=== PATIENT | female | born 2000 | race African-American/Black ===

== ENCOUNTER 2025-01-06 13:55 | Outpatient (AMB) | payer OTHER, SELFPAY ==
--- NOTE | 2025-01-06 14:14 | A.OFFPC_ITS ---
Vital Signs 01/06/25 14:24 Height 5 ft 9.69 in Weight 184 lb BMI 26.6 BP 96/72 Blood Pressure Location Lt brachial Position Sitting Respiration 17 Pulse 74 Pulse Source Pulse Oximeter Temp 97.3 F Temp Source Temporal Artery Scan Pulse Oximetry (%) 99 Oxygen Delivery Method Room Air Intake Visit Reasons: Establish care; swollen leg Insurance Law Specialist Required: No Accompanied by: Self / Same As Patient Allergies No Known Allergies Allergy (Verified 01/06/25 14:46) Medication List - Last Reconciled 01/06/25 by Shante White PA-C No Known Home Meds Tobacco use date assessed: 01/06/25 Dental Screening Dental Screen Date: 01/06/25 Did you have a dental visit in the last 12 months?: Yes Did you have a dental problem in the last 6 months where you did not have access to dental care?: No Was dental information given to patient?: Patient has dentist HPI Establish care; swollen leg HPI Details The patient is a 24-year-old female presenting for new patient appointment, annual physical exam and with bilateral leg swelling. The swelling has been persistent since March of the previous year and occurs daily. The patient first noticed the swelling during basic training in the , where she was not very active initially. The patient reports no associated chest pain or dyspnea, although she experien adam difficulty with physical exertion during basic training, such as climbing stairs and running. She has been on bed rest when not at work to manage the symptoms. An ultrasound of the legs was performed at [facility], which returned normal results. Blood tests were also conducted, showing normal results, except for a low blood count noted by a PA at the [facility], suggesting possible anemia. The patie nt denies any family history of heart disease or sudden cardiac . Social History - Employment: Works as a service delivery management consultant, wh ich involves prolonged standing. - Service: Previously in the ne litary, where she first noticed leg swelling. [facility] Medical History (Updated 01/06/25 @ 17:00 by Shante White PA-C) Anemia Annual physical exam Pedal edema Family History Father No problems noted. Mother Family history of thyroid problem Social History Housing: House Alcohol intake: current Alcohol intake frequency: holidays/special occasions only Patient Tobacco Use Status: Never used Tobacco service: No Current occupational status: employed Cognitive needs: No Hearing needs: No Vision needs: Yes (rx glasses) Questionnaire PHQ-9 Over the last 2 weeks, how often have you been bothered by any of the following problems? 1. Little interest or pleasure in doing things: not at all 2. Feeling down, depressed, or hopeless: not at all 3. Trouble falling or staying asleep, or sleeping too much: not at all 4. Feeling tired or having little energy: not at all 5. Poor appetite or overeating: not at all 6. Feeling bad about yourself - or that you are a failure or have let yourself o r your family down: not at all 7. Trouble concentrating on things, such as reading the newspaper or watching television: not at all 8. Moving or speaking so slowly that other people could have noticed. Or the opposite - being so fidgety or restless that you have been moving around a lot more than usual: not at all 9. Thoughts that you would be better off or of hurting yourself in some way: not at all Total score: 0 Depression Screening Interpretation: Negative Depression Screening Done: Yes 69629 - PHQ-9 Billing: Yes Source: Developed by Drs. Jon Bashir, Ketty Sanchez, Juanito fairbanks nd colleagues, with an educational jessenia from [employer]. Thrive Questionnaire Date Thrive assessed: 01/06/25 I am a: Patient What is your living situation today?: I have a steady place to live Within the past 12 months, did the food you bought not last and you didn't have the money to get more?: Never true Within the past 12 months, did you worry whether your food would run out before you got money to buy more?: Never true Do you have trouble paying for medicines?: No Do you have trouble getting transportation to medical appointments?: No Do you have trouble paying your heating and electricity bill?: No Do you have trouble taking care of your child, family member or friend?: No Do you have trouble with day-to-day activities such as bathing, preparing meals, shopping, managing finances, etc.?: No Are you currently unemployed and looking for a job?: No Are you interested in more education?: No Please select the resources that you would like help with: None Currently or been in a relationship where the following occur: No concerns reported THRIVE Score: 0 AUDIT C Alcohol Use Questionnaire (AUDIT-C) 1. How often do you have a drink containing alcohol?: Monthly or less 2. How many drinks containing alcohol do you have on a typical day when you are drinking?: 1 or 2 3. How often do you have six or more drinks on one occasion?: Never Total Score: 1 Score Reviewed/Action Taken: No WILFRED-7 AMB Questionnaire WILFRED-7 Date WILFRED - 7 assessed: 01/06/25 Feeling nervous, anxious, or on edge: 0 = Not at all Not being able to stop or control worryin = Not at all Worrying too much about different things: 0 = Not at all Trouble relaxin = Not at all Being so restless that it is hard to sit still: 0 = Not at all Becoming easily annoyed or irritable: 0 = Not at all Feeling afraid as if something awful might happen: 0 = Not at all Total WILFRED-7 score (0-4 normal; 5-9 mild; 10-14 moderate; 15-21 severe): 0 Source: Developed by Drs. Jon Bashir, Ketty Sanchez, Juanito Justin and colleagues, with an educational jessenia from [employer]. WILFRED-7 Assessment Billing WILFRED-7 Assessment Tool: WILFRED-7 Assessment 97638 Review of Systems Const Details: - Cardiovascular: Denies chest pain, denies dyspnea. - Musculoskeletal: Reports bilateral leg swelling since March of the previous year. - Neurological: Denies numbness, denies headaches. - Respiratory: Denies cough, denies hemoptysis. All systems reviewed & are unremarkable except as noted in HPI and below Physical exam (Primary Care) Vital Signs: Last Vital Signs Temp 97.3 F 01/06/25 14:24 Pulse 74 01/06/25 14:24 Resp 17 01/06/25 14:24 BP 96/72 01/06/25 14:24 Pulse Ox 99 01/06/25 14:24 Oxygen Delivery Method Room Air 01/06/25 14:24 Care Plan Goal for BP management: <140/90 at Goal BMI result Body Mass Index 26.6 BMI Assessment/Plan discussion: High BMI High, discussed plan: lifestyle, weight reduction, dietary, physical activity and alcohol moderation Tobacco/Smoking Status: Tobacco use Status Tobacco use date assessed 01/06/25 01/06/25 14:21 Patient Tobacco Use Status Never used Tobacco 01/06/25 14:24 PHQ-9: PHQ-9 Score PHQ-9: Total score 0 01/06/25 14:46 Depression Screening Interpretation: Negative Thrive Assessment: Date of Thrive Assessment Date Thrive assessed 01/06/25 01/06/25 14:21 Currently or been in a relationship where the following occur: No concerns reported Const Other: Appearance: Alert. Oriented X3. No acute distress. Head: Normal external exam. Normocephalic. Atraumatic. Eyes: Pupils are equal, round, and reactive to light. Extraocular movements intact. Conjunctiva and sclera normal. Eyelids normal. Ears: External auditory canal normal. Tympanic membranes normal. Throat: Pharynx normal. Uvula midline. Moist mucous membranes. Neck: Normal inspection. Neck supple. Full range of motion. No adenopathy. Thyroid Normal. No meningeal signs. No neck mass noted. Cardiovascular: Normal heart rate and rhythm. Heart sound normal. No murmurs noted. Pulses normal throughout. Respiratory: No respiratory distress. Painless inspiration. Breath sounds no rmal. No wheezes/rales/rhonchi noted. Chest nontender. No accessory muscle usage noted or decreased air movement noted. Abdomen: Soft and nontender. Bowel sounds normal in all 4 quadrants. No distenti on noted. No organomegaly noted. No visible injury noted. Back: No costovertebral angle tenderness. Full range of motion noted. Skin: Skin warm and dry. Normal skin color. Normal skin turgor. No rashe s/lesions/lacerations noted. Extremities: Patient reports bilateral lower extremity edema although on my exam there is no lower extremity edema noted. No calf tenderness is noted. Extremities exhibit normal range of motion. Extremities nontender. Neuro: Oriented X 3. No motor deficit. No sensory deficit. Reflexes normal. Results Reviewed Results Reviewed: - Ultrasound: Normal results for bilateral leg ultrasound. - Blood Tests: Normal results, except for low blood count suggesting possible anemia. Coding Level of Care Code New Pt Level 4 (37273) New Pt Prev Care 18-39yr(38964 Diagnoses Annual physical exam Z00.00 Pedal edema R60.0 Anemia D64.9 Additional Codes WILFRED-7 Assessment Billing - WILFRED-7 Assessment Tool: WILFRED-7 Assessment 47894 ([id number]) PHQ-9 - 67184 - PHQ-9 Billing: Yes ([id number]) Assessment & Plan Assessment & Plan (1) Annual physical exam: Code(s): Z00.00 - Encounter for general adult medical examination without abnormal findings Category: Medical (2) Pedal edema: Code(s): R60.0 - Localized edema Category: Medical Plan: The plan includes repeating blood work to assess for anemia and other potential causes of swelling. Referral to a vascular surgeon is recommended for further evaluation of potential venous insufficiency or other vascular issues. A chest X-ray will be performed to rule out cardiac causes of swelling. (3) Anemia: Code(s): D64.9 - Anemia, unspecified Category: Medical Plan: Further blood tests, including iron studies, will be conducted to confirm anemia and assess its severity. The patient will be monitored for symptoms of anemia, such as fatigue and dyspnea. Plan Plan Patient was informed and verbally consented to the use of an ambient scribe for clinic note documentation during this visit. 1. Bilateral Leg Swelling The plan includes repeating blood work to assess for anemia and other potential causes of swelling. Referral to a vascular surgeon is recommended for further evaluation of potential venous insufficiency or other vascular issues. A chest X-ray will be performed to rule out cardiac causes of swelling. 2. Possible Anemia Further blood tests, including iron studies, will be conducted to confirm anemia and assess its severity. The patient will be monitored for symptoms of anemia, such as fatigue and dyspnea. During the visit, I discussed with the patient the potential causes of her bilateral leg swelling, including venous insufficiency and anemia. I explained the need for further blood work and a referral to a vascular surgeon for comprehensive evaluation. We also discussed the importance of a chest X-ray to rule out cardiac causes of swelling. Orders: Orders B Type Natriuretic Peptide Today R60.0 - Localized edema Complete Blood Count Auto Diff Today Z00.00 - Encounter for general adult medical examination without abnormal findings Ferritin Today D64.9 - Anemia, unspecified Hemoglobin A1c Today Z00.00 - Encounter for general adult medical examination without abnormal findings Liver Panel Today Z00.00 - Encounter for general adult medical examination wi thout abnormal findings Magnesium Today Z00.00 - Encounter for general adult medical examination without abnormal findings C Reactive Protein Today Z00.00 - Encounter for general adult medical examination without abnormal findings Comprehensive [place]. Panel Fast Today Z00.00 - Encounter for general adult medical examination without abnormal findings IRON PROFILE Today D64.9 - Anemia, unspecified Lipid Panel Today Z00.00 - Encounter for general adult medical examination without abnormal findings TSH reflex Free T4 Today Z00.00 - Encounter for general adult medical examination without abnormal findings Vitamin B12 and Folate Today Z00.00 - Encounter for general adult medical examination without abnormal findings Vitamin D 25-OH Total Today Z00.00 - Encounter for general adult medical examination without abnormal findings XR chest 2V Today R60.0 - Localized edema Referrals Vascular Surgery Referral R60.0 - Localized edema Patient Instructions: - Schedule and complete fasting blood work within the next month. - Await contact from the vascular surgeon's office to schedule an appointment. - Monitor for any new or worsening symptoms and report them promptly. - Follow up in three months to assess progress and adjust the care plan as needed.
[2025-01-06 14:24] VITALS: BP 96/72; PULSE 74; RESP 17; TEMP 36.3; O2SAT 99; BMI 26.6
== END 2025-01-06 15:09 | disposition home or self-care (01) ==
LOC: HO.HMCSH 13:55
PROVIDERS: PCP Internal Medicine; Visit Provider Physician Assistant Medical
DX: Z00.00 Encounter for general adult medical examination without abnormal findings (principal); R60.0 Localized edema; D64.9 Anemia, unspecified

== ENCOUNTER → 2025-01-06 13:55 | Outpatient (BNVA) | payer OTHER, SELFPAY | PROVIDERS: PCP Internal Medicine; Visit Provider Physician Assistant Medical | DX: Z00.00 Encounter for general adult medical examination without abnormal findings (principal); R60.0 Localized edema; D64.9 Anemia, unspecified | CPT/HCPCS: 96127 ==

== ENCOUNTER 2025-03-03 14:20 | Outpatient (AMB) | payer OTHER, SELFPAY ==
[2025-03-03 14:24] VITALS: BMI 28.0
--- NOTE | 2025-03-03 14:24 | MHC.OFFVIS ---
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 Pt states she has since moved back in the area and has had some testing in regards to the LE swelling. Pt states she stands working all day and swelling does worsen throughout the day. Pt states she wears compression and elevates when she is home and it seems to help. Dental Office Assistant Required: No Accompanied by: Self / Same As Patient Allergies grass pollen Adverse Reaction (Intermediate, Verified 03/03/25 14:30) Rash Latex, Natural Rubber Adverse Reaction (Intermediate, Verified 03/03/25 14:30) Rash HPI HPI BOX OFFICE ATTENDANT Edema: Details: The patient is a 24-year-old female presenting with bilateral leg swelling and heaviness. The swelling has been present for approximately one year, with no history of similar issues during childhood. There is no history of trauma or injury to the legs, and the patient denies any pain associated with the swelling. The patient reports a sensation of heaviness and tiredness in the legs, although there is no difficulty in lifting them. There is no family history of blood clots, and the patient does not smoke or have diabetes, although her grandmother had diabetes. 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 She noticed this in particular when she was in basic training in the and was subsequently discharged for that. She now presents to us for vascular evaluation. It has been affecting there daily activities including working in a deli. It is noted more so in bilateral leg. Patient denies any previous venous surgery or injections. Patient denies any history of DVT/ PE. Patient denies any history of phlebitis. Trial of compression includes - [id number] They now present for vascular evaluation regarding their varicose veins. [facility] Medical History Anemia Annual physical exam Pedal edema Family History Father No problems noted. Mother Family history of thyroid problem Social History Housing: House Alcohol intake: current Alcohol intake frequency: holidays/special occasions only Patient Tobacco Use Status: Never used Tobacco service: No Current occupational status: employed Cognitive needs: No Hearing needs: No Vision needs: Yes (rx glasses) Review of Systems Const Reports as per HPI ENT Reports no additional complaints Card Denies chest pain, Denies chest pain at rest and Denies chest pain with activity Resp Denies chest congestion and Denies cough GI Reports no additional complaints Musc Details: pain over varicosities, aching of lower extremities, swelling, cramping, heaviness and tiredness, itching Denies abnormal gait Skin/Breast Reports pruritus and Denies wounds Neuro Reports no additional complaints and Denies abnormal gait Psych Denies no additional complaints Physical Exam Vital Signs: BMI result Body Mass Index 28.0 Const General: cooperative, healthy appearing and comfortable Orientation/consciousness: oriented to person, oriented to place and oriented to time Neck Carotids: no bruits Chest Chest palpation & inspection: normal inspection of the chest and normal palpation of entire chest wall Resp Effort & Inspection: normal respiratory effort and able to speak in complete sentences Cardio Rate: regular rate Heart sounds: S1 normal heart sound present and S2 normal heart sound present Peripheral pulses: Peripheral pulses 2+ throughout GI Inspection: Yes normal to inspection Skin Other: +2 edema, +2 edema CEAP Classification C4 - skin color changes Ep - Etiology Primary As - superficial veins P - reflux General skin exam: dry skin Neuro General: oriented to person, oriented to place and oriented to time Extrem Right lower extremity: full ROM, normal capillary refill and edema Left lower extremity: full ROM, normal capillary refill and edema Psych Mental Status: mental status grossly normal Assessment & Plan Assessment & Plan (1) Varicose veins of right lower extremity with inflammation: Code(s): I83.11 - Varicose veins of right lower extremity with inflammation Category: Medical Plan: In short, the patient has evidence of venous insufficiency. I have discussed the pathophysiology with the patient. In addition I have provided informational material regarding venous disease to the patient. We have discussed conservative measures including compression, elevation, and exercise. I have also provided a handout regarding appropriate use of compression stockings and where to purchase good compression stockings as well. I have taken the liberty of ordering venous insufficiency testing with the patient. They will follow up with me after testing. The patient had an opportunity to ask questions regarding the treatment plan. All questions were answered. Imaging studies, laboratory studies and physical exam results were discussed and reviewed in detail. No major barriers to understanding were identified. The patient expressed understanding and agreement with the above treatment plan. The patient is aware they should contact our office by phone for worsening of the current condition or the appearance of new symptoms. Thank you for allowing me to participate in the vascular care of this patient. If you have any questions or concerns regarding the treatment for the above condition please do not hesitate to contact me. The office telephone contact is [phone]. This note is constructed using voice recognition software. While every effort has been made to ensure accuracy, manager ems errors may have been included. Thank you for allowing me to participate in the care of your patient. Yours sincerely, Tacos Cordero MD, FACS, R.P.V.I. (2) Lymphedema: Code(s): I89.0 - Lymphedema, not elsewhere classified Category: Medical Plan: The concern here is that she does have an element of lymphedema. She does demonstrate clinical stigmata of lymphedema. It is unusual at such a young age to develop this. She may have early onset or even a congenital variant of this. We will work her up for venous disease and potentially lymphedema after that. Thank you for allowing us to assist in her care. If there are any questions or concerns please do not hesitate to contact us. Orders: Orders US venous duplex LE BI 1 Week I83.11 - Varicose veins of right lower extremity with inflammation Coding Level of Care Code Est Pt Level 4 (72487) Diagnoses Varicose veins of right lower extremity with inflammation I83.11 Lymphedema I89.0
== END 2025-03-03 14:48 | disposition home or self-care (01) ==
LOC: HO.HVS 14:21
PROVIDERS: PCP Internal Medicine; Visit Provider Surgery Vascular Surgery
DX: I83.11 Varicose veins of right lower extremity with inflammation (principal); I89.0 Lymphedema, not elsewhere classified
CPT/HCPCS: 99214

== ENCOUNTER 2025-03-30 13:21 | Outpatient (AMB) | payer OTHER, SELFPAY ==
[2025-03-30 13:19] VITALS: BP 100/54; PULSE 84; TEMP 36.7; O2SAT 99; BMI 26.5
--- NOTE | 2025-03-30 13:19 | A.OFFPC_ITS ---
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 She has no active complaints today. The patient was previously evaluated for leg swelling and saw a vascular surgeon, Dr. Cordero, who diagnosed her with lymphedema. She was given compression socks, which she has been wearing, and reports her leg swelling has significantly improved and is way down. The vascular surgeon also ordered another set of vein ultrasounds due to her young age. Previous lower leg ultrasounds were negative for blood clots. The patient reports an issue with attempting to get blood tests and X-rays, as she was told there was no doctor's order. This was because her grandmother scheduled the appointment at an incorrect facility, likely a [facility] location, where the electronic orders placed in December were not accessible. Results - Lower leg ultrasound (previous): Negat santos for blood clots. [facility] Medical History (Updated 03/30/25 @ 14:06 by Shante White PA-C) Healthcare maintenance Anemia Annual physical exam Pedal edema Family History Father No problems noted. Mother Family history of thyroid problem Social History Housing: House Alcohol intake: current Alcohol intake frequency: holidays/special occasions only Patient Tobacco Use Status: Never used Tobacco service: No Current occupational status: employed Cognitive needs: No Hearing needs: No Vision needs: Yes (rx glasses) Questionnaire PHQ-9 Over the last 2 weeks, how often have you been bothered by any of the following problems? 1. Little interest or pleasure in doing things: not at all 2. Feeling down, depressed, or hopeless: not at all 3. Trouble falling or staying asleep, or sleeping too much: not at all 4. Feeling tired or having little energy: not at all 5. Poor appetite or overeating: not at all 6. Feeling bad about yourself - or that you are a failure or have let yourself or your family down: not at all 7. Trouble concentrating on things, such as reading the newspaper or watching television: not at all 8. Moving or speaking so slowly that other people could have noticed. Or the opposite - being so fidgety or restless that you have been moving around a lot more than usual: not at all 9. Thoughts that you would be better off or of hurting yourself in some way: not at all Total score: 0 Depression Screening Interpretation: Negative Depression Screening Done: Yes 76153 - PHQ-9 Billing: Yes Source: Developed by Drs. Jon Bashir, Ketty Sanchez, Juanito Justin and colleagues, with an educational jessenia from [employer]. Thrive Questionnaire Date Thrive assessed: 01/06/25 I am a: Patient What is your living situation today?: I have a steady place to live Within the past 12 months, did the food you bought not last and you didn't have the money to get more?: Never true Within the past 12 months, did you worry whether your food would run out before you got money to buy more?: Never true Do you have trouble paying for medicines?: No Do you have trouble getting transportation to medical appointments?: No Do you have trouble paying your heating and electricity bill?: No Do you have trouble taking care of your child, family member or friend?: No Do you have trouble with day-to-day activities such as bathing, preparing meals, shopping, managing finances, etc.?: No Are you currently unemployed and looking for a job?: No Are you interested in more education?: No Please select the resources that you would like help with: None Currently or been in a relationship where the following occur: No concerns reported THRIVE Score: 0 AUDIT C Alcohol Use Questionnaire (AUDIT-C) 1. How often do you have a drink containing alcohol?: Monthly or less 2. How many drinks containing alcohol do you have on a typical day when you are drinking?: 1 or 2 3. How often do you have six or more drinks on one occasion?: Never Total Score: 1 Score Reviewed/Action Taken: No WILFRDE-7 AMB Questionnaire WILFRED-7 Date WILFRED - 7 assessed: 01/06/25 Feeling nervous, anxious, or on edge: 0 = Not at all Not being able to stop or control worryin = Not at all Worrying too much about different things: 0 = Not at all Trouble relaxin = Not at all Being so restless that it is hard to sit still: 0 = Not at all Becoming easily annoyed or irritable: 0 = Not at all Feeling afraid as if something awful might happen: 0 = Not at all Total WILFRED-7 score (0-4 normal; 5-9 mild; 10-14 moderate; 15-21 severe): 0 Source: Developed by Drs. Jon Bashir, Ketty Sanchez, Juanito Justin and colleagues, with an educational jessenia from [employer]. WILFRED-7 Assessment Billing WILFRED-7 Assessment Tool: WILFRED-7 Assessment 24388 Review of Systems Narrative Review of Systems - General: Denies any complaints. - Cardiovascular: Denies chest pain. - Respiratory: Denies shortness of breath. - Extremities: Reports persistent but significantly improved bilateral lower extremity swelling. Const All systems reviewed & are unremarkable except as noted in HPI and below Physical exam (Primary Care) Vital Signs: Last Vital Signs Temp 98.1 F 03/30/25 13:19 Pulse 84 03/30/25 13:19 BP 100/54 L 03/30/25 13:19 Pulse Ox 99 03/30/25 13:19 Care Plan Goal for BP management: <140/90 at Goal BMI result Body Mass Index 26.5 BMI Assessment/Plan discussion: High BMI High, discussed plan: lifestyle, weight reduction, dietary, physical activity, alcohol moderation and other Tobacco/Smoking Status: Tobacco use Status Tobacco use date assessed 01/06/25 03/30/25 13:21 Patient Tobacco Use Status Never used Tobacco 03/30/25 13:21 PHQ-9: PHQ-9 Score PHQ-9: Total score 0 03/30/25 13:34 Depression Screening Interpretation: Negative Thrive Assessment: Date of Thrive Assessment Date Thrive assessed 01/06/25 03/30/25 13:21 Currently or been in a relationship where the following occur: No concerns reported Narrative Physical Exam Appearance: Alert. Oriented X3. No acute distress. Head: Normal external exam. Normocephalic. Atraumatic. Eyes: Pupils are equal, round, and reactive to light. Extraocular movements intact. Conjunctiva and sclera normal. Eyelids normal. Throat: Pharynx normal. Uvula midline. Moist mucous membranes. Neck: Normal inspection. Neck supple. Full range of motion. Cardiovascular: Normal heart rate and rhythm. Respiratory: No respiratory distress. Painless inspiration. Back: Full range of motion noted. Skin: Skin warm and dry. Normal skin color. Normal skin turgor. No rashes/lesions/lacerations noted. Extremities: No lower extremity edema. Extremities exhibit normal range of motion. Neuro: Oriented X 3. No motor deficit. No sensory deficit. Reflexes normal. Office Procedures Flu Questionnaire Does the patient have a severe egg allergy?: No Does the patient have severe life threatening allergies?: No Does the patient have a fever or illness today?: No Has the patient ever had Guillain-[place] Syndrome?: No Has the patient ever had any past reaction to a flu shot?: No Immunizations Fluarix [id number] (PF) 45 mcg (15 mcg x 3)/0.5 mL IM syringe Performing Provider: Shante White PA-C [facility] Documented (not given) by: Shazia Prasad on 03/30/25 13:33 Dose Route Admin Location Dispensed Lot Number Expiration Date 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 Coding Level of Care Code Est Pt Level 4 (93510) Complex EM visit Add On G2211 Diagnoses Lymphedema I89.0 Healthcare maintenance Z00.00 Additional Codes WILFRED-7 Assessment Billing - WILFRED-7 Assessment Tool: WILFRED-7 Assessment 41987 ([id number]) PHQ-9 - 28941 - PHQ-9 Billing: Yes ([id number]) Assessment & Plan Assessment & Plan (1) Lymphedema: Code(s): I89.0 - Lymphedema, not elsewhere classified Category: Medical Plan: The patient reports significant improvement in her lymphedema with the use of compression socks and leg elevation, as recommended by her vascular surgeon. She will continue these conservative measures. She is pending a repeat venous ultrasound as ordered by vascular surgery. (2) Healthcare maintenance: Code(s): Z00.00 - Encounter for general adult medical examination without abnormal findings Category: Medical Plan: The patient was instructed on the correct procedure and locations for obtaining her pending lab work, urinalysis, and chest X-ray, which were ordered in December. She was reminded to fast for at least 8 to 10 hours before the blood draw. A follow-up appointment is scheduled for three months to review the results. Plan Plan Patient was informed and verbally consented to the use of an ambient scribe for clinic note documentation during this visit. 1. Lymphedema The patient reports significant improvement in her lymphedema with the use of compression socks and leg elevation, as recommended by her vascular surgeon. She will continue these conservative measures. She is pending a repeat venous ultrasound as ordered by vascular surgery. 2. Health Maintenance The patient was instructed on the correct procedure and locations for obtaining her pending lab work, urinalysis, and chest X-ray, which were ordered in December. She was reminded to fast for at least 8 to 10 hours before the blood draw. A follow-up appointment is scheduled for three months to review the results. Discussion Notes I discussed the patient's progress with her leg swelling, noting that it has improved significantly with compression socks and elevation. We reviewed that she was seen by vascular surgery, and I acknowledged that lymphedema is unusual in someone her age and could have a genetic component. I also clarified why she was unable to get her labs done, explaining that the orders are in the system for specific lab locations and she needs to go to one of those. I reiterated the fasting requirement of 8-10 hours for her blood work. We agreed to a three-month follow-up to review her test results. Orders: Orders Influenza [id number] Immunization Today Z23 - Encounter for immunization UA CC w/rflx Micro + Cult Today Z00.00 - Encounter for general adult medical examination without abnormal findings Medications: New Fluarix [id number] (PF) (flu vac ts (6mos up)-PF) 0.5 mL IM ONCE 0.5 mL 0RF NS Z23 - Encounter for immunization Patient Instructions: Patient Instructions - It is okay to get your blood work, urine test, and chest X-ray done at your convenience. - Please go to one of the lab locations on the paper I gave you previously, as the orders are already in their computer system. - You do not need an appointment for these tests; you can just walk in. - Make sure not to eat or drink anything for 8 to 10 hours before your blood test. - Continue wearing your compression socks and elevating your legs as you have been doing. - Follow up on getting the new vein ultrasound that the vascular surgeon ordered. - Please schedule a follow-up appointment with our office in three months.
== END 2025-03-30 13:57 | disposition home or self-care (01) ==
LOC: HO.HMCSH 13:21
PROVIDERS: PCP Physician Assistant Medical; Visit Provider Physician Assistant Medical
DX: I89.0 Lymphedema, not elsewhere classified (principal); Z00.00 Encounter for general adult medical examination without abnormal findings; Z23 Encounter for immunization

== ENCOUNTER → 2025-03-30 13:21 | Outpatient (BNVA) | payer OTHER, SELFPAY | PROVIDERS: PCP Internal Medicine; Visit Provider Physician Assistant Medical | DX: Z00.00 Encounter for general adult medical examination without abnormal findings (principal); I89.0 Lymphedema, not elsewhere classified; Z28.89 Immunization not carried out for other reason | CPT/HCPCS: 90471; 96127 ==

== ENCOUNTER 2025-04-08 10:28 | Outpatient (REF) | payer OTHER, SELFPAY ==
--- NOTE | ~2025-04-08 | US_ITS ---
EXAMINATION: US LOWER EXTREMITY VENOUS (REFLUX EXAM), BILATERAL CLINICAL INFORMATION: Varicose veins of the lower extremity with inflammation COMPARISON: None. TECHNIQUE: Color flow triplex imaging and compression Doppler was performed to evaluate both the deep and the superficial systems bilaterally. To evaluate the superficial system, the examination was performed in the upright position. Color-flow Doppler ultrasound and compression ultrasound were utilized. In addition, maneuvers were utilized to demonstrate reflux. FINDINGS: 1. DEEP VENOUS ULTRASOUND OF THE RIGHT LOWER EXTREMITY: Common Femoral Vein: Compressible, normal respiratory variation and augmented flow. Femoral Vein: Compressible, normal color flow and augmentation. Popliteal Vein: Compressible, normal augmentation. Deep Reflux: There is no evidence of reflux in the deep system in either the common femoral vein, superficial femoral or the popliteal vein. 2. SUPERFICIAL ULTRASOUND WITH DOPPLER OF RIGHT LOWER EXTREMITY: GREAT SAPHENOUS VEIN: Saphenofemoral Junction: 0.6 cm; Reflux: 0 ms Proximal Thigh: 0.3 cm; Reflux: 0 ms Mid Thigh: 0.3 cm; Reflux: 1136 ms Distal Thigh: 0.1 cm; Reflux: 0 ms At Knee: 0.2 cm; Reflux: 0 ms Below Knee/Proximal Calf: 0.1 cm; Reflux: 0 ms Mid Calf: 0.2 cm; Reflux: 0 ms Ankle/Distal Calf: 0.2 cm; Reflux: 0 ms Lateral accessory GREAT SAPHENOUS VEIN: Saphenofemoral Junction: 0.2 cm; Reflux: 0 ms SMALL SAPHENOUS VEIN: Drainage: Popliteal vein Saphenopopliteal Junction: 0.4 cm; Reflux: 0 ms Mid calf: 0.2 cm; Reflux: 1500 ms Distal: 0.2 cm; Reflux: 0 ms VEIN OF GIACOMINI: Size: NA cm Reflux: NA ms PERFORATORS: Location: Greater saphenous vein, midthigh Size: 0.2 cm Reflux: 0 ms Location: Greater saphenous vein, mid calf Size: 0.2 cm Reflux: 0 ms VARICOSITIES > 3mm: None > 3mm. Several < 3 mm 3. DEEP VENOUS ULTRASOUND OF THE LEFT LOWER EXTREMITY: Common Femoral Vein: Compressible, normal respiratory variation and augmented flow. Femoral Vein: Compressible, normal color flow and augmentation. Popliteal Vein: Compressible, normal augmentation. Deep Reflux: There is no evidence of reflux in the deep system in either the common femoral vein, superficial femoral or the popliteal vein. 4. SUPERFICIAL ULTRASOUND WITH DOPPLER OF LEFT LOWER EXTREMITY: GREAT SAPHENOUS VEIN: Saphenofemoral Junction: 0.5 cm; Reflux: 0 ms Proximal Thigh: 0.4 cm; Reflux: 0 ms Mid Thigh: 0.1 cm; Reflux: 0 ms Distal Thigh: 0.2 cm; Reflux: 0 ms At Knee: 0.3 cm; Reflux: 0 ms Below Knee/Proximl calf: 0.2 cm; Reflux: >3000 ms Mid Calf: 0.2 cm; Reflux: 0 ms Distal Calf/Ankle: 0.2 cm; Reflux: 0 ms Lateral accessory GREAT SAPHENOUS VEIN: Saphenofemoral Junction: 0.2 cm; Reflux: 0 ms SMALL SAPHENOUS VEIN: Drainage: Popliteal vein Saphenopopliteal Junction: 0.3 cm; Reflux: 0 ms Mid calf: 0.2 cm; Reflux: 0 ms Distal calf: 0.1 cm; Reflux: 0 ms VEIN OF GIACOMINI: Size: NA Reflux: NA PERFORATORS: None imaged VARICOSITIES > 3mm: None Imaged Several < 3 mm US/US venous duplex LE IMPRESSION: Right: Venous incompetence was demonstrated in the greater saphenous vein in the mid thigh and in the small saphenous vein and midcalf Left: Venous incompetence was demonstrated in the great saphenous vein just below the knee Electronically signed by: Edin Porter MD 04/08/2025 12:23 PM [facility]
== END 2025-04-08 10:29 | disposition home or self-care (01) ==
LOC: HO.US 10:28
PROVIDERS: PCP Physician Assistant Medical; Visit Provider Surgery Vascular Surgery
DX: I83.11 Varicose veins of right lower extremity with inflammation (principal)
CPT/HCPCS: 93970

== ENCOUNTER → 2025-04-08 10:31 | Outpatient (BNV) | payer OTHER, SELFPAY | PROVIDERS: PCP Physician Assistant Medical; Visit Provider Radiology Diagnostic Radiology | DX: I83.11 Varicose veins of right lower extremity with inflammation (principal) | CPT/HCPCS: 93970 ==

== ENCOUNTER 2025-04-30 09:48 | Outpatient (AMB) | payer OTHER, SELFPAY ==
--- NOTE | 2025-04-30 10:10 | MHC.OFFVIS ---
Intake Visit Reasons: follow up s/p US 04/08/25 Intake Note: Patient presents for s/p US performed on 04/08/25. No new complaints. Accompanied by: Self / Same As Patient Allergies grass pollen Adverse Reaction (Intermediate, Verified 04/30/25 10:15) Rash Latex, Natural Rubber Adverse Reaction (Intermediate, Verified 04/30/25 10:15) Rash HPI HPI follow up s/p US 04/08/25: Details: The patient is a 24-year-old female presenting for a follow-up visit regarding venous insufficiency. She reports a one-year history of lower extremity swelling, which is her primary complaint. Her symptoms are exacerbated by her occupation which involves prolonged standing, including working up to seven days in a row with overtime. She has been using compression socks, but reports her legs still feel swollen despite their use. She now presents to us for follow-up with venous insufficiency testing. [facility] Medical History Healthcare maintenance Anemia Annual physical exam Pedal edema Family History Father No problems noted. Mother Family history of thyroid problem Social History Housing: House Alcohol intake: current Alcohol intake frequency: holidays/special occasions only Patient Tobacco Use Status: Never used Tobacco service: No Current occupational status: employed Cognitive needs: No Hearing needs: No Vision needs: Yes (rx glasses) Review of Systems Const Reports as per HPI ENT Reports no additional complaints Card Denies chest pain, Denies chest pain at rest and Denies chest pain with activity Resp Denies chest congestion and Denies cough GI Reports no additional complaints Musc Details: pain over varicosities, aching of lower extremities, swelling, cramping, heaviness and tiredness, itching Denies abnormal gait Skin/Breast Reports pruritus and Denies wounds Neuro Reports no additional complaints and Denies abnormal gait Psych Denies no additional complaints Physical Exam Const General: cooperative, healthy appearing and comfortable Orientation/consciousness: oriented to person, oriented to place and oriented to time Neck Carotids: no bruits Chest Chest palpation & inspection: normal inspection of the chest and normal palpation of entire chest wall Resp Effort & Inspection: normal respiratory effort and able to speak in complete sentences Cardio Rate: regular rate Heart sounds: S1 normal heart sound present and S2 normal heart sound present Peripheral pulses: Peripheral pulses 2+ throughout GI Inspection: Yes normal to inspection Skin Other: +2 edema, right greater than left CEAP Classification C4 - skin color changes Ep - Etiology Primary As - superficial veins P - reflux General skin exam: dry skin Neuro General: oriented to person, oriented to place and oriented to time Extrem Right lower extremity: full ROM, normal capillary refill and edema Left lower extremity: full ROM, normal capillary refill and edema Psych Mental Status: mental status grossly normal Results Reviewed Results Reviewed: Brief summary of venous insufficiency testing is as follows: right great saphenous vein: negative right small saphenous vein: negative right accessory vein: none present left great saphenous vein: negative left small saphenous vein: negative left accessory vein: none present Please note there is no evidence of any venous aneurysms or significant tortuosity Assessment & Plan Assessment & Plan (1) Varicose veins of right lower extremity with inflammation: Code(s): I83.11 - Varicose veins of right lower extremity with inflammation Category: Medical Plan: In short patient has venous insufficiency testing is essentially negative. We did discuss routine conservative measures including compression elevation and exercise. She does have excessive swelling for what you would expect for someone her age. We will treat her for lymphedema. (2) Lymphedema: Code(s): I89.0 - Lymphedema, not elsewhere classified Category: Medical Plan: In short the patient has late on sent lymphedema. On physical we are noticing hyperpigmentation. Clinically patient is experiencing pain edema and limb heaviness that is impacting activities of daily living. Significant symptoms remain despite compliance to the best of their ability with more than 4 weeks of conservative treatment inclusive of compression, elevation and exercise. Skin sensitivity and pain prevent tolerance of pneumatic compression level pressures; therefore I am prescribing a non pneumatic compression device which allows the patient to be mobile and adjust pressure over painful treatment areas. I do feel this non pneumatic compression device is medically necessary and will aid in the treatment of this patient's lymphedema. Thank you for allowing us to participate in this patient's care. If there are any questions or concerns please do not hesitate to contact us. Coding Level of Care Code Est Pt Level 4 (06492) Diagnoses Varicose veins of right lower extremity with inflammation I83.11 Lymphedema I89.0
== END 2025-04-30 10:38 | disposition home or self-care (01) ==
LOC: HO.HVS 09:48
PROVIDERS: PCP Physician Assistant Medical; Visit Provider Surgery Vascular Surgery
DX: I83.11 Varicose veins of right lower extremity with inflammation (principal); I89.0 Lymphedema, not elsewhere classified
CPT/HCPCS: 99214